=== PATIENT | male | born 1990 | race Two or more races ===

== ENCOUNTER 2016-05-28 21:00 | Emergency (ER) | payer SELFPAY ==
[~2016-05-28] VITALS: Ht 167.6 cm; Wt 86.2 kg
[2016-05-28 22:09] LABS: Urine Bilirubin Negative (Negative); Urine Blood Negative /uL (Negative); Urine Color Yellow (Yellow); Urine Glucose Normal (Normal); Urine Ketone Negative (Negative); Urine Mucus FEW (None Seen); Urine Nitrite Negative (Negative); Urine RBC 1 /hpf (0 - 3); Urine Squamous Epithelial Cell FEW /hpf (<5); Urine Urobilinogen Normal (Negative); Urine pH 6.5 (5.0-8.0)
[2016-05-28 23:35] VITALS: BP 153/81
== END 2016-05-29 00:45 | disposition home or self-care (01) ==
LOC: ER 21:02
DX: N50.819 Testicular pain, unspecified (principal)
CPT/HCPCS: 76870; 81001